=== PATIENT | female | born 2000 | race African-American/Black ===

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

== ENCOUNTER → 2018-05-24 | Outpatient (REF) | payer OTHER ==
[2018-05-24 12:17] LABS: AMORPHOUS SEDIMENT SMALL (NEGATIVE); APPEARANCE, URINE CLOUDY (CLEAR); BACTERIA, URINE AUTO NEGATIVE (NEGATIVE); BILIRUBIN, URINE AUTO NEGATIVE (NEGATIVE); BLOOD, URINE BLOOD NEGATIVE (NEGATIVE); COLOR, URINE YELLOW (YELLOW); GLUCOSE, URINE (UA) AUTO NEGATIVE (NEGATIVE); KETONE, URINE AUTO NEGATIVE (NEGATIVE); LEUKOCYTE ESTERASE, URINE AUTO 1+ (NEGATIVE); NITRITE, URINE AUTO NEGATIVE (NEGATIVE); PROTEIN, URINE AUTO NEGATIVE (NEGATIVE); RBC, URINE AUTO 2 /HPF (0-3); SPECIFIC GRAVITY URINE AUTO 1.003 (1.002-1.035); SQUAMOUS EPITHELIAL CELL UR AU 20 /HPF (0-6); UROBILINOGEN, URINE AUTO 0.2 mg/dL (0.0-2.0); WBC, URINE AUTO 8 /HPF (0-3)
[2018-05-24 13:12] LABS: ALBUMIN/GLOBULIN RATIO 0.98 (1.00-1.93); ALKALINE PHOSPHATASE 46 U/L (45-117); ALT/SGPT 15 U/L (12-78); ANION GAP 8 MEQ/L (8-16); AST/SGOT 18 U/L (7-37); BILIRUBIN,TOTAL 0.9 MG/DL (0.2-1.0); BLOOD UREA NITROGEN 14 MG/DL (7-18); CALCIUM LEVEL 8.9 MG/DL (8.5-10.1); CARBON DIOXIDE LEVEL 27 MEQ/L (21-32); CHLORIDE LEVEL 102 MEQ/L (98-107); CREATININE FOR GFR 0.87 MG/DL (0.55-1.30); GLUCOSE, FASTING 71 MG/DL (70-100); POTASSIUM SERUM 3.9 MEQ/L (3.5-5.1); SODIUM LEVEL 137 MEQ/L (136-145); TOTAL PROTEIN 8.1 GM/DL (6.4-8.2)
[2018-05-24 14:25] LABS: CHLAMYDIA DNA AMPLIFICATION NEGATIVE (NEGATIVE); GC DNA AMPLIFICATION NEGATIVE (NEGATIVE)
[2018-05-29 00:06] LABS: % CD8 Pos Lymph 45.5 % (12.0-35.5); %CD4 Pos Lymphs 34.4 % (30.8-58.5); ABS Eosinophils 0.1 x10E3/uL (0.0-0.4); ABS Lymphs 2.1 x10E3/uL (0.7-3.1); ABS Monocytes 0.3 x10E3/uL (0.1-0.9); ABS Neutophils 1.6 x10E3/uL (1.4-7.0); Abs CD4 Helper 722 /uL (359-1519); Abs CD8 Suppres 956 /uL (109-897); CD4/CD8 Ratio 0.76 (0.92-3.72); Eosinophils 1 % (Not Estab.); HCT 36.8 % (34.0-46.6); HGB 12.2 g/dL (11.1-15.9); HIV-1 RNA PCR QUANT 2 LC550285 <20 copies/mL (.); Immature Grans 0 % (Not Estab.); Lymphocytes 52 % (Not Estab.); MCH 31.9 pg (26.6-33.0); MCHC 33.2 g/dL (31.5-35.7); MCV 96 fL (79-97); Monocytes 7 % (Not Estab.); Neutrophils 40 % (Not Estab.); Platelets 224 x10E3/uL (150-379); RBC 3.82 x10E6/uL (3.77-5.28); RDW 15.2 % (12.3-15.4); WBC 4.1 x10E3/uL (3.4-10.8)
== END ==
LOC: M SFHCPLAZ 09:12
DX: B20 Human immunodeficiency virus [HIV] disease (principal)
CPT/HCPCS: 80053

== ENCOUNTER 2018-07-30 11:07 | Emergency (ER) | payer OTHER ==
[~2018-07-30] VITALS: Ht 175.3 cm; Wt 75.0 kg
[2018-07-30] MEDS ORDERED: TRIU1TAB PO (11:25)
[2018-07-30 11:42] LABS: BASO % 0.5 % (0.0-1.0); EOS # 0.1 10^3/uL (0.0-0.50); EOS % 1.4 % (0.0-3.0); HEMATOCRIT 33.4 % (36.0-47.0); HEMOGLOBIN 11.1 g/dl (12.0-15.5); LYMPH # 2.7 10^3/uL (1.5-6.5); LYMPH % 45.6 % (24.0-44.0); MEAN CORPUSCULAR HEMOGLOBIN 33.4 pg (27.0-33.0); MEAN CORPUSCULAR HGB CONC 33.2 g/dl (32.0-36.5); MEAN CORPUSCULAR VOLUME 100.6 fl (80.0-96.0); MONO # 0.3 10^3/uL (0.0-0.8); MONO % 5.3 % (0.0-5.0); NEUTROPHILS # 2.8 10^3/uL (1.8-7.7); PLATELET COUNT, AUTOMATED 241 10^3/uL (150-450); RED BLOOD COUNT 3.32 10^6/uL (4.00-5.40); WHITE BLOOD COUNT 5.9 10^3/uL (4.0-10.0)
[2018-07-30 12:05] LABS: BLOOD UREA NITROGEN 13 MG/DL (7-18); CALCIUM LEVEL 9.1 MG/DL (8.5-10.1); CARBON DIOXIDE LEVEL 28 MEQ/L (21-32); CHLORIDE LEVEL 104 MEQ/L (98-107); CREATININE FOR GFR 0.92 MG/DL (0.55-1.30); GLUCOSE, FASTING 95 MG/DL (70-100); POTASSIUM SERUM 3.5 MEQ/L (3.5-5.1); SODIUM LEVEL 139 MEQ/L (136-145)
[2018-07-30 12:08] LABS: HCG, SERUM QUALITATIVE NEGATIVE (NEGATIVE)
--- NOTE | 2018-07-30 13:02 | REP ---
PELVIC AND ENDOVAGINAL PROBE ULTRASOUND: 07/30/2018. Clinical history: Continuous vaginal bleeding since May. Findings: No prior study. Transabdominal and endovaginal probes were utilized. Bladder is nearly completely empty. Uterus is anteverted and anteflexed and measures 8.5 x 3.3 x 3.8 cm. Uterine contour is smooth. It appears homogeneous. However the endometrium appears subtly heterogeneous and has a thickness up to 13 mm. I do not see definite fluid in the endometrial cavity or endocervical canal. No nodule or mass identified in the endometrium. No fluid in the cul-de-sac. The right ovary 4.1 x 1.9 x 2.3 cm and the left ovary 2.6 x 2.3 x 2.2 cm. Neither ovary shows solid mass or cyst. There are subcentimeter follicles on both sides. Doppler tracing shows resistive index of 0.58 on the right 0.65 on the left, normal. No evidence of torsion. No adjacent free fluid. EV probe shows a few small Nabothian cysts in the cervix. Impression: 1. Uterus anteverted, not enlarged and without focal abnormality of the myometrium. Contours normal. No pelvic free fluid. 2. Endometrial stripe is subtly heterogeneous, its thickness 13 mm without fluid in the endometrial cavity or endocervical canal. No nodule/mass seen within. 3. Bilateral ovaries show blood flow and no mass, cyst, adjacent free fluid or other acute finding. Electronically Signed by Matt Napier MD 07/30/2018 05:51 P
[2018-07-30 14:31] VITALS: BP 123/77
--- NOTE | 2018-08-05 19:45 | ED PDOC ---
Post-Departure Follow-Up malia maurer and dena eddy faxed formal report of pelvic us for fu Karine Rodriguez MD Aug 05, 2018 19:45
== END 2018-07-30 14:36 | disposition home or self-care (01) ==
LOC: M ED 11:07
DX: N93.9 Abnormal uterine and vaginal bleeding, unspecified (principal); R10.30 Lower abdominal pain, unspecified; B20 Human immunodeficiency virus [HIV] disease; Z79.899 Other long term (current) drug therapy

== ENCOUNTER → 2018-08-27 | Outpatient (REF) | payer OTHER ==
[~2018-08-27] MED LIST: TRIU1TAB PO
[2018-08-27 13:57] LABS: APPEARANCE, URINE CLEAR (CLEAR); BACTERIA, URINE AUTO 1+ (NEGATIVE); BILIRUBIN, URINE AUTO NEGATIVE (NEGATIVE); BLOOD, URINE BLOOD 1+ (NEGATIVE); COLOR, URINE STRAW (YELLOW); GLUCOSE, URINE (UA) AUTO NEGATIVE (NEGATIVE); KETONE, URINE AUTO NEGATIVE (NEGATIVE); LEUKOCYTE ESTERASE, URINE AUTO TRACE (NEGATIVE); NITRITE, URINE AUTO NEGATIVE (NEGATIVE); PROTEIN, URINE AUTO NEGATIVE (NEGATIVE); RBC, URINE AUTO 4 /HPF (0-3); SPECIFIC GRAVITY URINE AUTO 1.004 (1.002-1.035); SQUAMOUS EPITHELIAL CELL UR AU 4 /HPF (0-6); UROBILINOGEN, URINE AUTO 0.2 mg/dL (0.0-2.0); WBC, URINE AUTO 0 /HPF (0-3)
[2018-08-27 14:44] LABS: ALBUMIN 4.1 GM/DL (3.2-5.2); ALT/SGPT 15 U/L (12-78); BILIRUBIN,TOTAL 0.5 MG/DL (0.2-1.0); BLOOD UREA NITROGEN 12 MG/DL (7-18); CARBON DIOXIDE LEVEL 25 MEQ/L (21-32); CHLORIDE LEVEL 107 MEQ/L (98-107); CREATININE FOR GFR 0.88 MG/DL (0.55-1.30); GLUCOSE, FASTING 85 MG/DL (70-100); POTASSIUM SERUM 3.9 MEQ/L (3.5-5.1); SODIUM LEVEL 139 MEQ/L (136-145); TOTAL PROTEIN 8.1 GM/DL (6.4-8.2)
[2018-08-28 12:33] LABS: CHLAMYDIA DNA AMPLIFICATION NEGATIVE (NEGATIVE); GC DNA AMPLIFICATION NEGATIVE (NEGATIVE)
[2018-08-29 10:15] LABS: % CD8 Pos Lymph 48.8 % (12.0-35.5); %CD4 Pos Lymphs 32.2 % (30.8-58.5); ABS Eosinophils 0.1 x10E3/uL (0.0-0.4); ABS Lymphs 1.9 x10E3/uL (0.7-3.1); ABS Monocytes 0.3 x10E3/uL (0.1-0.9); ABS Neutophils 3.4 x10E3/uL (1.4-7.0); Abs CD4 Helper 612 /uL (359-1519); Abs CD8 Suppres 927 /uL (109-897); CD4/CD8 Ratio 0.66 (0.92-3.72); Eosinophils 1 % (Not Estab.); HCT 29.6 % (34.0-46.6); HGB 9.9 g/dL (11.1-15.9); HIV-1 RNA PCR QUANT 2 LC550285 <20 copies/mL (.); Immature Grans 0 % (Not Estab.); Lymphocytes 33 % (Not Estab.); MCHC 33.4 g/dL (31.5-35.7); MCV 96 fL (79-97); Monocytes 6 % (Not Estab.); Neutrophils 60 % (Not Estab.); Platelets 376 x10E3/uL (150-379); RBC 3.09 x10E6/uL (3.77-5.28); RDW 14.1 % (12.3-15.4); WBC 5.6 x10E3/uL (3.4-10.8)
== END ==
LOC: M SFHCPLAZ 11:34
PROVIDERS: ATTEND Internal Medicine Infectious Disease
DX: B20 Human immunodeficiency virus [HIV] disease (principal); Z86.19 Personal history of other infectious and parasitic diseases

== ENCOUNTER → 2019-03-20 | Outpatient (REF) | payer OTHER ==
[2019-03-20 13:49] LABS: ALBUMIN 3.9 GM/DL (3.2-5.2); ALT/SGPT 13 U/L (12-78); BILIRUBIN,TOTAL 0.5 MG/DL (0.2-1.0); BLOOD UREA NITROGEN 6 MG/DL (7-18); CALCIUM LEVEL 9.5 MG/DL (8.5-10.1); CARBON DIOXIDE LEVEL 23 MEQ/L (21-32); CHLORIDE LEVEL 107 MEQ/L (98-107); CREATININE FOR GFR 0.66 MG/DL (0.55-1.30); GLUCOSE, FASTING 84 MG/DL (70-100); POTASSIUM SERUM 3.9 MEQ/L (3.5-5.1); SODIUM LEVEL 139 MEQ/L (136-145); TOTAL PROTEIN 7.8 GM/DL (6.4-8.2)
[2019-03-26 00:07] LABS: % CD8 Pos Lymph 43.9 % (12.0-35.5); %CD4 Pos Lymphs 36.2 % (30.8-58.5); ABS Eosinophils 0.1 x10E3/uL (0.0-0.4); ABS Lymphs 1.9 x10E3/uL (0.7-3.1); ABS Monocytes 0.4 x10E3/uL (0.1-0.9); ABS Neutophils 4.1 x10E3/uL (1.4-7.0); Abs CD4 Helper 688 /uL (359-1519); Abs CD8 Suppres 834 /uL (109-897); CD4/CD8 Ratio 0.82 (0.92-3.72); Eosinophils 2 % (Not Estab.); HCT 36.3 % (34.0-46.6); HGB 12.1 g/dL (11.1-15.9); HIV-1 RNA PCR QUANT 2 LC550285 <20 copies/mL (.); Immature Grans 0 % (Not Estab.); Lymphocytes 29 % (Not Estab.); MCH 31.3 pg (26.6-33.0); MCHC 33.3 g/dL (31.5-35.7); MCV 94 fL (79-97); Monocytes 6 % (Not Estab.); Neutrophils 63 % (Not Estab.); Platelets 245 x10E3/uL (150-450); RBC 3.87 x10E6/uL (3.77-5.28); RDW 16.8 % (12.3-15.4); WBC 6.5 x10E3/uL (3.4-10.8)
== END ==
LOC: M SFHCPLAZ 11:29
PROVIDERS: ATTEND Internal Medicine Infectious Disease
DX: B20 Human immunodeficiency virus [HIV] disease (principal)

== ENCOUNTER → 2019-04-24 | Outpatient (CLI) | payer OTHER ==
[2019-04-24 16:27] LABS: BASO % 0.3 % (0.0-1.0); EOS # 0.1 10^3/uL (0.0-0.5); EOS % 1.2 % (0.0-3.0); HEMATOCRIT 34.6 % (36.0-47.0); HEMOGLOBIN 11.5 g/dl (12.0-15.5); LYMPH # 2.1 10^3/uL (1.5-5.0); LYMPH % 30.8 % (24.0-44.0); MEAN CORPUSCULAR HEMOGLOBIN 32.2 pg (27.0-33.0); MEAN CORPUSCULAR HGB CONC 33.2 g/dl (32.0-36.5); MEAN CORPUSCULAR VOLUME 96.9 fl (80.0-96.0); MONO # 0.5 10^3/uL (0.0-0.8); NEUTROPHILS # 4.1 10^3/uL (1.5-8.5); NEUTROPHILS % 60.4 % (36.0-66.0); PLATELET COUNT, AUTOMATED 216 10^3/uL (150-450); RED BLOOD COUNT 3.57 10^6/uL (4.00-5.40); WHITE BLOOD COUNT 6.8 10^3/uL (4.0-10.0)
[2019-04-24 18:04] LABS: CHLAMYDIA DNA AMPLIFICATION NEGATIVE (NEGATIVE); GC DNA AMPLIFICATION NEGATIVE (NEGATIVE)
[2019-04-25 12:46] LABS: RUBELLA IgG QUALITATIVE IMMUNE (IMMUNE)
[2019-04-28 10:04] LABS: HIV 1&2 SCREEN CENTAUR REACTIVE (NEGATIVE)
== END ==
LOC: M LAB 15:23
PROVIDERS: ATTEND Advanced Practice Midwife
DX: Z34.01 Encounter for supervision of normal first pregnancy, first trimester (principal); Z36.89 Encounter for other specified antenatal screening

== ENCOUNTER → 2019-04-30 | Outpatient (CLI) | payer OTHER ==
--- NOTE | 2019-04-30 11:34 | REP ---
OB ULTRASOUND: Real-time sonographic evaluation of the gravid uterus is performed. There is a single living intrauterine gestation. Estimated gestational age is 19 weeks 2 days, EDC 09/22/2019. Today's measurements indicate appropriate growth. BPD 45 mm = 19 weeks 5 days, 60th percentile HC 172 mm = 19 weeks 5 days, 61st percentile AC 142 mm = 19 weeks 4 days, 56th percentile Femur length 31 mm = 19 weeks 5 days, 59th percentile HC/AC ratio 1.21 within normal range. Estimated weight 304 grams, 59th percentile. Cervix is closed and measures 3.2 cm in length. heart rate 139 beats per minute. SEEN/GROSSLY UNREMARKABLE Lateral ventricles Yes Posterior fossa Yes Upper lip Yes Four-chamber heart No LVOT Yes RVOT No Stomach Yes Cord insertion Yes Three vessel cord Yes Kidneys Yes Bladder Yes Spine Yes position: Breech. Placenta: Anterior and grade 1 with no previa or abruption. Amniotic fluid: Within normal limits. Electronically Signed by Wayne Boswell MD 05/01/2019 11:18 A
== END ==
LOC: M RAD 10:27
PROVIDERS: ATTEND Advanced Practice Midwife
DX: Z34.02 Encounter for supervision of normal first pregnancy, second trimester (principal); Z36.89 Encounter for other specified antenatal screening; Z3A.19 19 weeks gestation of pregnancy

== ENCOUNTER → 2019-06-12 | Outpatient (CLI) | payer OTHER ==
--- NOTE | 2019-06-12 21:16 | REP ---
Clinical: Anatomical evaluation. Comparison: 04/30/2019 . Findings: Examination demonstrates a single live intrauterine in cephalic presentation. motion is identified by technologist. Placenta is noted the anterior and grade I without evidence for placenta previa or abruption. Amniotic fluid volume is normal. Cervix measures 3.7 cm in length and appears closed. No evidence for nuchal cord. Gestational age by LMP 25 weeks 3 days with CHASITY 09/22/2019 . Gestational age by current measurements 26 weeks 3 days with CHASITY 09/15/2019 . FHR equals 144 beats per minute. Estimated weight 914 grams ( 67th percentile). Anatomical assessment demonstrates normal structures including cranium, choroid plexus, cavum, cerebellum/posterior fossa, lungs, four-chamber heart/ventricular outflow tracts, diaphragm, stomach, cord insertion/three-vessel cord, kidneys/bladder, spine, and extremities. Impression: Single live intrauterine in cephalic presentation demonstrating appropriate interval growth. In conjunction with prior examination anatomical assessment is complete and normal. No gross abnormalities are identified. Electronically Signed by Esteban Smalls MD 06/12/2019 09:07 P
== END ==
LOC: M RAD 08:13
PROVIDERS: ATTEND Advanced Practice Midwife
DX: Z34.02 Encounter for supervision of normal first pregnancy, second trimester (principal); Z3A.26 26 weeks gestation of pregnancy

== ENCOUNTER → 2019-06-21 | Outpatient (REF) | payer OTHER ==
[2019-06-21 12:36] LABS: AMORPHOUS SEDIMENT SMALL (NEGATIVE); APPEARANCE, URINE HAZY (CLEAR); BACTERIA, URINE AUTO NEGATIVE (NEGATIVE); BILIRUBIN, URINE AUTO NEGATIVE (NEGATIVE); BLOOD, URINE BLOOD NEGATIVE (NEGATIVE); COLOR, URINE YELLOW (YELLOW); GLUCOSE, URINE (UA) AUTO NEGATIVE (NEGATIVE); KETONE, URINE AUTO NEGATIVE (NEGATIVE); LEUKOCYTE ESTERASE, URINE AUTO 2+ (NEGATIVE); MUCUS, URINE SMALL (NEGATIVE); NITRITE, URINE AUTO NEGATIVE (NEGATIVE); PROTEIN, URINE AUTO NEGATIVE (NEGATIVE); RBC, URINE AUTO 0 /HPF (0-3); SPECIFIC GRAVITY URINE AUTO 1.014 (1.002-1.035); SQUAMOUS EPITHELIAL CELL UR AU 2 /HPF (0-6); UROBILINOGEN, URINE AUTO 0.2 mg/dL (0.0-2.0); WBC, URINE AUTO 3 /HPF (0-3)
== END ==
LOC: M LAB REF 12:13
PROVIDERS: ATTEND Physician Assistant Medical
DX: N39.0 Urinary tract infection, site not specified (principal)

== ENCOUNTER → 2019-06-23 | Outpatient (REF) | payer OTHER | LOC: M SFHCPLAZ 13:30 | PROVIDERS: ATTEND Internal Medicine Infectious Disease | DX: B20 Human immunodeficiency virus [HIV] disease (principal) ==

== ENCOUNTER → 2019-07-07 | Outpatient (CLI) | payer OTHER ==
[2019-07-07 14:22] LABS: HEMATOCRIT 30.8 % (36.0-47.0); HEMOGLOBIN 9.9 g/dl (12.0-15.5); MEAN CORPUSCULAR HEMOGLOBIN 31.8 pg (27.0-33.0); MEAN CORPUSCULAR HGB CONC 32.1 g/dl (32.0-36.5); PLATELET COUNT, AUTOMATED 174 10^3/uL (150-450); RED BLOOD COUNT 3.11 10^6/uL (4.00-5.40); WHITE BLOOD COUNT 7.3 10^3/uL (4.0-10.0)
== END ==
LOC: M PLALAB 09:47
PROVIDERS: ATTEND Advanced Practice Midwife
DX: Z34.02 Encounter for supervision of normal first pregnancy, second trimester (principal); Z3A.00 Weeks of gestation of pregnancy not specified

== ENCOUNTER → 2019-08-04 | Outpatient (CLI) | payer OTHER | LOC: M LAB 08:36 | PROVIDERS: ATTEND Advanced Practice Midwife | DX: Z34.03 Encounter for supervision of normal first pregnancy, third trimester (principal); R73.02 Impaired glucose tolerance (oral); Z3A.00 Weeks of gestation of pregnancy not specified ==

== ENCOUNTER → 2019-08-25 | Outpatient (REF) | payer OTHER | LOC: M SFHCWAGY 11:47 | PROVIDERS: ATTEND Specialist | DX: Z34.03 Encounter for supervision of normal first pregnancy, third trimester (principal); Z36.85 Encounter for antenatal screening for Streptococcus B ==

== ENCOUNTER 2019-09-06 02:51 | Inpatient (IN) | payer OTHER ==
[2019-09-06] VITALS (10 sets, daily range): BP systolic 124–151; BP diastolic 70–88
[~2019-09-06] VITALS: Ht 177.8 cm; Wt 91.3 kg
[2019-09-06] MEDS ORDERED: LR 1,000 ML IV SCH (03:01)
[2019-09-06] MEDS ORDERED: LACTATED RINGER'S 1000 ML IV STA (03:01)
[2019-09-06 03:29] LABS: HEMATOCRIT 32.1 % (36.0-47.0); HEMOGLOBIN 10.5 g/dl (12.0-15.5); MEAN CORPUSCULAR HEMOGLOBIN 28.5 pg (27.0-33.0); MEAN CORPUSCULAR HGB CONC 32.7 g/dl (32.0-36.5); MEAN CORPUSCULAR VOLUME 87.2 fl (80.0-96.0); PLATELET COUNT, AUTOMATED 243 10^3/uL (150-450); RED BLOOD COUNT 3.68 10^6/uL (4.00-5.40); WHITE BLOOD COUNT 10.8 10^3/uL (4.0-10.0)
[2019-09-06] MEDS ORDERED: FENTANYL 2MCG/ML ROPIVACAINE 0.2% IN 0.9% NACL 100ML IVBAG As Ordered ONE (04:05)
[2019-09-06] MEDS ORDERED: OXYTOCIN 30 UNITS IN 0.9% NaCl 500ML IV BAG (J2590) As Ordered ONE (04:38)
[2019-09-06] MEDS ORDERED: NALOXONE INJ 0.4 MG/1 ML VIAL (J2310) IV PRN (04:45)
[2019-09-06] MEDS ORDERED: ePHEDrine SULFATE 25 MG/5 ML(5MG/ML) SYRINGE IV PRN (04:45)
[2019-09-06] MEDS ORDERED: FENTANYL/ROPIVACAINE/NACL BAG 100 ML EPIDURAL SCH (04:45)
[2019-09-06] MEDS ORDERED: LACTATED RINGER'S 1000 ML IV PRN (04:45)
[2019-09-06] MEDS ORDERED: EPIDURAL/PCA KEYS XX PRN (04:45)
[2019-09-06] MEDS ORDERED: REFRIGERATOR IV KEYS XX PRN (04:45)
[2019-09-06] MEDS ORDERED: diphenhydrAMINE INJ 50MG/ML VIAL (J1200) IV PRN (04:45)
[2019-09-06] MEDS ORDERED: ONDANSETRON 4MG/2ML VIAL (J2405) IV PRN (04:45)
[2019-09-06] MEDS ORDERED: EPIDURAL COMMENT XX SCH (04:45)
[2019-09-06] MEDS ORDERED: DIBUCAINE 1% OINTMENT 30GM TOP PRN (05:15)
[2019-09-06] MEDS ORDERED: ACETAMINOPHEN 500 MG TAB PO PRN (05:15)
[2019-09-06] MEDS ORDERED: DOCUSATE SODIUM 100 MG CAP PO PRN (05:15)
[2019-09-06] MEDS ORDERED: METHYLERGONOVINE MALEATE 0.2 MG TAB PO PRN (05:15)
[2019-09-06] MEDS ORDERED: ACETAMINOPHEN TAB 650MG DOSE (2X325MG) PO PRN (05:15)
[2019-09-06] MEDS ORDERED: RHOGAM 300 MCG (1500 IU) INJ (J2790) IM SCH (05:15)
[2019-09-06] MEDS ORDERED: IBUPROFEN 800 MG TAB PO PRN (05:15)
[2019-09-06] MEDS ORDERED: MEASLES,MUMPS,RUBELLA VACCINE INJ (MMR-II) (90707) SC SCH (05:15)
[2019-09-06] MEDS ORDERED: OXYTOCIN DRIP 30 UNITS in IV 1 EA IV SCH (05:15)
[2019-09-06] MEDS ORDERED: IBUPROFEN 600 MG TAB PO PRN (05:15)
--- NOTE | 2019-09-06 06:29 | HPE ---
DATE OF ADMISSION: 09/06/2019 Chanel is a 19-year-old, 1, para 0, at 37-5/7 weeks gestation with an estimated date of confinement (EDC) of 09/22/2019 based on first trimester ultrasound. She presents to labor and delivery today with report of onset of uncomfortable contractions yesterday that progressively became excruciating overnight. She denies vaginal bleeding or leakage of fluid. The fetus has been active. Her care was initiated at [facility] in the first trimester. Her course complicated by HIV positive status. Her last viral load in June was extremely low. She does see Dr. Jeter for management. OBSTETRIC HISTORY: Primigravida. OBSTETRIC LABS: B+, antibody screen negative, rubella immune, VDRL nonreactive. Urine culture no growth. Hepatitis B surface antigen negative. HIV positive HIV-1. Hepatitis C antibody nonreactive. Gonorrhea and chlamydia negative. She declined genetic serum screening labs. Her gestational diabetic screening was elevated at 151. She did however have a normal 3-hour glucose tolerance test fasting 87, 1-hour 165, 2-hour 166, and 3-hour 138. Her GBS is negative. PAST MEDICAL HISTORY: HIV positive, childhood varicella. SURGERIES: Tympanostomy FAMILY HISTORY: Seizure disorder, asthma. SOCIAL HISTORY: The patient is single. However, the father of the baby is at bedside and supportive. She is a nonsmoker. She denies alcohol and drug use. She does have a history of chlamydia in the past and currently HIV positive. She denies history of abuse physical, sexual, and emotional. ALLERGIES: NO KNOWN DRUG ALLERGIES. CURRENT MEDICATIONS: - Biktarvy 50-125 - vitamins OBJECTIVE: There are no vital signs that have been taken. She is extremely uncomfortable, crying with her contractions. heart rate is 150 with moderate variability, positive accelerations, no decelerations. Geraldo every 2 minutes. They do palpate strong. Her abdomen is gravid, cephalic presentation. Estimated weight 6-1/2-7 pounds. Sterile vaginal exam: 5 cm dilated, 100% effaced, zero station. Mid position. She is intact. There is no bloody show. ASSESSMENT: Intrauterine at 37-5/7 weeks, heart rate category 1, active labor. PLAN: Admit the patient to labor and delivery. IV fluid bolus. The patient is requesting an epidural for her pain management. Routine labs. Out of bed ad montserrat. Clear liquid diet at this time. I do anticipate continued labor progress and a spontaneous vaginal delivery. The patient has been verbally consented for emergency surgery and blood products if necessary. DAYROND
--- NOTE | 2019-09-06 06:33 | DN ---
DATE OF DELIVERY: 09/06/2019 DELIVERY NOTE: Chanel is a 19-year-old 1, para 1-0-0-1 now, who was admitted to labor and delivery in active labor. She coped with her labor physiologically. She had spontaneous rupture of membranes for a small amount of clear fluid at 0401 hours. She reached complete dilation at 0438 hours. She pushed to a normal spontaneous vaginal delivery of a live female infant in left occiput anterior (SEBASTIEN) position with restitution to left occiput transverse (LOT) position at 0446 hours. There was no nuchal cord. The shoulders delivered spontaneously and the corpus immediately followed. The female was placed on the maternal abdomen crying and active. Mouth and nares bulb suctioned. The cord was clamped times two and cut by the father of the baby under my direction. Spontaneous expulsion of an intact placenta with three-vessel cord by Schultze mechanism was at 0450 hours. Uterine hemostasis achieved with IV Pitocin rapid infusion and uterine fundal massage. Estimated blood loss 250 mL. Perineum and vagina inspected and noted to have a small right labial laceration, but laceration is hemostatic, no need for any repair. [place] female weighed 2870 grams (6 pounds 5 ounces), 9 and 9. Mom is going to bottle feed her baby and the family have named her Sujatha. At the close of delivery, lap counts and instrument counts were correct and verified.
[2019-09-06] MEDS: PRENATAL VITAMINS CHEWABLE TABLET PO SCH (09:00)
[2019-09-07 06:00] VITALS: BP 124/70
[2019-09-07] MEDS: PRENATAL VITAMINS CHEWABLE TABLET PO SCH (11:43)
[2019-09-07 18:00] VITALS: BP 133/76
[2019-09-08 06:00] VITALS: BP 126/79
[2019-09-08] MEDS ORDERED: IBUP80TA PO (07:05)
[2019-09-08] MEDS ORDERED: ACET-683 PO (07:05)
[2019-09-08] MEDS: PRENATAL VITAMINS CHEWABLE TABLET PO SCH (09:23)
== END 2019-09-08 12:50 | disposition home or self-care (01) | DRG 560 ==
LOC: M LDO 02:51 → M LDI 02:58 → M OBS 06:16
PROVIDERS: ADMIT Advanced Practice Midwife; ATTEND Advanced Practice Midwife
PROC: 10E0XZZ Delivery of Products of Conception, External Approach (ICD-10-PCS; principal; 2019-09-06)
DX: O98.72 Human immunodeficiency virus [HIV] disease complicating childbirth (principal); B20 Human immunodeficiency virus [HIV] disease; O70.0 First degree perineal laceration during delivery; Z37.0 Single live birth; Z3A.37 37 weeks gestation of pregnancy

== ENCOUNTER → 2020-04-05 | Outpatient (REF) | payer MEDICAID ==
[~2020-04-05] MED LIST changes: +ACET-683 PO; +IBUP80TA PO
[2020-04-05 11:02] LABS: ALBUMIN 3.8 GM/DL (3.2-5.2); ALT/SGPT 16 U/L (12-78); BILIRUBIN,TOTAL 0.5 MG/DL (0.2-1.0); BLOOD UREA NITROGEN 14 MG/DL (7-18); CARBON DIOXIDE LEVEL 24 MEQ/L (21-32); CHLORIDE LEVEL 109 MEQ/L (98-107); CREATININE FOR GFR 0.86 MG/DL (0.55-1.30); GLOMERULAR FILTRATION RATE > 60.0 (>60); GLUCOSE, FASTING 91 MG/DL (70-100); SODIUM LEVEL 140 MEQ/L (136-145); TOTAL PROTEIN 7.5 GM/DL (6.4-8.2)
[2020-04-07 03:08] LABS: % CD8 Pos Lymph 46.1 % (12.0-35.5); %CD4 Pos Lymphs 38.1 % (30.8-58.5); ABS Eosinophils 0.1 x10E3/uL (0.0-0.4); ABS Lymphs 2.8 x10E3/uL (0.7-3.1); ABS Monocytes 0.4 x10E3/uL (0.1-0.9); ABS Neutophils 2.9 x10E3/uL (1.4-7.0); Abs CD4 Helper 1067 /uL (359-1519); Abs CD8 Suppres 1291 /uL (109-897); CD4/CD8 Ratio 0.83 (0.92-3.72); Eosinophils 1 % (Not Estab.); HGB 10.9 g/dL (11.1-15.9); HIV-1 RNA PCR QUANT 2 LC550285 <20 copies/mL (.); Immature Grans 0 % (Not Estab.); Lymphocytes 45 % (Not Estab.); MCH 30.5 pg (26.6-33.0); MCHC 32.1 g/dL (31.5-35.7); MCV 95 fL (79-97); Monocytes 6 % (Not Estab.); Neutrophils 47 % (Not Estab.); Platelets 259 x10E3/uL (150-450); RBC 3.57 x10E6/uL (3.77-5.28); RDW 15.2 % (11.7-15.4); WBC 6.1 x10E3/uL (3.4-10.8)
== END ==
LOC: M SFHCPLAZ 08:17
PROVIDERS: ATTEND Internal Medicine Infectious Disease
DX: B20 Human immunodeficiency virus [HIV] disease (principal)

== ENCOUNTER → 2020-11-04 | Outpatient (REF) | payer MEDICAID ==
[2020-11-04 13:43] LABS: APPEARANCE, URINE CLEAR (CLEAR); BACTERIA, URINE AUTO NEGATIVE (NEGATIVE); BILIRUBIN, URINE AUTO NEGATIVE (NEGATIVE); BLOOD, URINE BLOOD NEGATIVE (NEGATIVE); COLOR, URINE STRAW (YELLOW); GLUCOSE, URINE (UA) AUTO NEGATIVE (NEGATIVE); KETONE, URINE AUTO NEGATIVE (NEGATIVE); LEUKOCYTE ESTERASE, URINE AUTO NEGATIVE (NEGATIVE); NITRITE, URINE AUTO NEGATIVE (NEGATIVE); PROTEIN, URINE AUTO NEGATIVE (NEGATIVE); RBC, URINE AUTO 0 /HPF (0-3); SPECIFIC GRAVITY URINE AUTO 1.004 (1.002-1.035); SQUAMOUS EPITHELIAL CELL UR AU 2 /HPF (0-6); UROBILINOGEN, URINE AUTO 0.2 mg/dL (0.0-2.0); WBC, URINE AUTO 0 /HPF (0-3)
[2020-11-04 14:16] LABS: ALBUMIN 4.4 GM/DL (3.2-5.2); ALT/SGPT 18 U/L (12-78); BILIRUBIN,TOTAL 0.8 MG/DL (0.2-1.0); BLOOD UREA NITROGEN 14 MG/DL (7-18); CALCIUM LEVEL 10.3 MG/DL (8.5-10.1); CARBON DIOXIDE LEVEL 24 MEQ/L (21-32); CHLORIDE LEVEL 108 MEQ/L (98-107); CHOLESTEROL LEVEL 155 MG/DL (<200); CHOLESTEROL RISK RATIO 1.962 (<5); CREATININE FOR GFR 0.97 MG/DL (0.55-1.30); GLOMERULAR FILTRATION RATE > 60.0 (>60); GLUCOSE, FASTING 91 MG/DL (70-100); HDL CHOLESTEROL 79 MG/DL (>40); LDL CHOLESTEROL 65 MG/DL (<100); NON-HDL-C 76 MG/DL; POTASSIUM SERUM 4.2 MEQ/L (3.5-5.1); SODIUM LEVEL 139 MEQ/L (136-145); TOTAL PROTEIN 8.1 GM/DL (6.4-8.2); TRIGLYCERIDES LEVEL 56 MG/DL (<150)
[2020-11-06 08:19] LABS: % CD8 Pos Lymph 49.1 % (12.0-35.5); %CD4 Pos Lymphs 33.2 % (30.8-58.5); ABS Eosinophils 0.1 x10E3/uL (0.0-0.4); ABS Lymphs 2.3 x10E3/uL (0.7-3.1); ABS Monocytes 0.3 x10E3/uL (0.1-0.9); ABS Neutophils 1.6 x10E3/uL (1.4-7.0); Abs CD4 Helper 764 /uL (359-1519); Abs CD8 Suppres 1129 /uL (109-897); CD4/CD8 Ratio 0.68 (0.92-3.72); Eosinophils 3 % (Not Estab.); HGB 12.8 g/dL (11.1-15.9); HIV-1 RNA PCR QUANT 2 LC550285 <20 copies/mL (.); Immature Grans 0 % (Not Estab.); Lymphocytes 53 % (Not Estab.); MCH 31.4 pg (26.6-33.0); MCHC 32.8 g/dL (31.5-35.7); MCV 96 fL (79-97); Monocytes 6 % (Not Estab.); Neutrophils 37 % (Not Estab.); Platelets 228 x10E3/uL (150-450); RBC 4.08 x10E6/uL (3.77-5.28); RDW 15.6 % (11.7-15.4); WBC 4.4 x10E3/uL (3.4-10.8)
== END ==
LOC: M SFHCPLAZ 11:05
PROVIDERS: ATTEND Internal Medicine Infectious Disease
DX: B20 Human immunodeficiency virus [HIV] disease (principal); Z13.220 Encounter for screening for lipoid disorders

== ENCOUNTER → 2021-02-22 | Outpatient (CLI) | payer MEDICAID ==
[2021-02-22 15:49] LABS: ALBUMIN 4.2 GM/DL (3.2-5.2); ALT/SGPT 19 U/L (12-78); BILIRUBIN,TOTAL 0.7 MG/DL (0.2-1.0); BLOOD UREA NITROGEN 13 MG/DL (7-18); CALCIUM LEVEL 9.4 MG/DL (8.5-10.1); CARBON DIOXIDE LEVEL 26 MEQ/L (21-32); CHLORIDE LEVEL 106 MEQ/L (98-107); CREATININE FOR GFR 1.03 MG/DL (0.55-1.30); GLOMERULAR FILTRATION RATE > 60.0 (>60); GLUCOSE, FASTING 92 MG/DL (70-100); SODIUM LEVEL 140 MEQ/L (136-145); TOTAL PROTEIN 8.1 GM/DL (6.4-8.2)
[2021-02-25 01:09] LABS: % CD8 Pos Lymph 44.7 % (12.0-35.5); %CD4 Pos Lymphs 38.1 % (30.8-58.5); ABS Eosinophils 0.1 x10E3/uL (0.0-0.4); ABS Lymphs 2.9 x10E3/uL (0.7-3.1); ABS Monocytes 0.2 x10E3/uL (0.1-0.9); ABS Neutophils 2.4 x10E3/uL (1.4-7.0); Abs CD4 Helper 1105 /uL (359-1519); Abs CD8 Suppres 1296 /uL (109-897); CD4/CD8 Ratio 0.85 (0.92-3.72); Eosinophils 2 % (Not Estab.); HCT 42.3 % (34.0-46.6); HGB 13.6 g/dL (11.1-15.9); HIV-1 RNA PCR QUANT 2 LC550285 <20 copies/mL (.); Immature Grans 0 % (Not Estab.); Lymphocytes 51 % (Not Estab.); MCH 33.3 pg (26.6-33.0); MCHC 32.2 g/dL (31.5-35.7); MCV 103 fL (79-97); Monocytes 4 % (Not Estab.); Neutrophils 42 % (Not Estab.); Platelets 235 x10E3/uL (150-450); RBC 4.09 x10E6/uL (3.77-5.28); WBC 5.8 x10E3/uL (3.4-10.8)
== END ==
LOC: M PLALAB 13:42
PROVIDERS: ATTEND Internal Medicine Infectious Disease
DX: B20 Human immunodeficiency virus [HIV] disease (principal)

== ENCOUNTER → 2021-04-07 | Outpatient (CLI) | payer MEDICAID ==
[2021-04-07 15:38] LABS: BASO % 0.5 % (0.0-1.0); EOS % 0.7 % (0.0-3.0); HEMATOCRIT 40.7 % (36.0-47.0); LYMPH # 2.2 10^3/uL (1.5-5.0); LYMPH % 36.6 % (24.0-44.0); MEAN CORPUSCULAR HEMOGLOBIN 34.1 pg (27.0-33.0); MEAN CORPUSCULAR HGB CONC 34.4 g/dl (32.0-36.5); MEAN CORPUSCULAR VOLUME 99.3 fl (80.0-96.0); MONO # 0.4 10^3/uL (0.0-0.8); MONO % 6.4 % (2.0-8.0); NEUTROPHILS # 3.3 10^3/uL (1.5-8.5); NEUTROPHILS % 55.5 % (36.0-66.0); PLATELET COUNT, AUTOMATED 256 10^3/uL (150-450)
[2021-04-07 16:23] LABS: ALBUMIN 4.5 GM/DL (3.2-5.2); ALT/SGPT 20 U/L (12-78); BILIRUBIN,TOTAL 1.3 MG/DL (0.2-1.0); BLOOD UREA NITROGEN 7 MG/DL (7-18); CARBON DIOXIDE LEVEL 26 MEQ/L (21-32); CHLORIDE LEVEL 106 MEQ/L (98-107); CREATININE FOR GFR 0.89 MG/DL (0.55-1.30); GLOMERULAR FILTRATION RATE > 60.0 (>60); GLUCOSE, FASTING 77 MG/DL (70-100); HCG, SERUM QUANTITATIVE 9482 MIU/ML; HEPATITIS B SURFACE ANTIGEN NEGATIVE (NEGATIVE); POTASSIUM SERUM 3.9 MEQ/L (3.5-5.1); SODIUM LEVEL 137 MEQ/L (136-145); TOTAL PROTEIN 8.2 GM/DL (6.4-8.2)
[2021-04-08 07:34] LABS: GC DNA AMPLIFICATION NEGATIVE (NEGATIVE)
== END ==
LOC: M PLALAB 11:32
PROVIDERS: ATTEND Internal Medicine Infectious Disease
DX: Z34.91 Encounter for supervision of normal pregnancy, unspecified, first trimester (principal); B20 Human immunodeficiency virus [HIV] disease

== ENCOUNTER → 2021-05-12 | Outpatient (CLI) | payer MEDICAID, OTHER ==
[2021-05-12 14:55] LABS: HEMATOCRIT 35.9 % (36.0-47.0); HEMOGLOBIN 12.4 g/dl (12.0-15.5); MEAN CORPUSCULAR HEMOGLOBIN 34.6 pg (27.0-33.0); MEAN CORPUSCULAR HGB CONC 34.5 g/dl (32.0-36.5); MEAN CORPUSCULAR VOLUME 100.3 fl (80.0-96.0); PLATELET COUNT, AUTOMATED 229 10^3/uL (150-450); RED BLOOD COUNT 3.58 10^6/uL (4.00-5.40); WHITE BLOOD COUNT 6.5 10^3/uL (4.0-10.0)
[2021-05-12 15:34] LABS: ALT/SGPT 20 U/L (12-78); BILIRUBIN,TOTAL 1.1 MG/DL (0.2-1.0); BLOOD UREA NITROGEN 7 MG/DL (7-18); CALCIUM LEVEL 9.2 MG/DL (8.5-10.1); CARBON DIOXIDE LEVEL 23 MEQ/L (21-32); CHLORIDE LEVEL 108 MEQ/L (98-107); GLOMERULAR FILTRATION RATE > 60.0 (>60); GLUCOSE, FASTING 82 MG/DL (70-100); POTASSIUM SERUM 3.5 MEQ/L (3.5-5.1); SODIUM LEVEL 139 MEQ/L (136-145); TOTAL PROTEIN 7.3 GM/DL (6.4-8.2)
[2021-05-12 16:11] LABS: HEPATITIS C VIRUS ABY INDEX 0.1 INDEX (<0.8)
[2021-05-12 16:35] LABS: GC DNA AMPLIFICATION NEGATIVE (NEGATIVE)
[2021-05-14 23:07] LABS: %CD4 Pos Lymphs 36.9 % (30.8-58.5); ABS Eosinophils 0.1 x10E3/uL (0.0-0.4); ABS Lymphs 2.5 x10E3/uL (0.7-3.1); ABS Monocytes 0.3 x10E3/uL (0.1-0.9); ABS Neutophils 3.9 x10E3/uL (1.4-7.0); Abs CD4 Helper 923 /uL (359-1519); Abs CD8 Suppres 1175 /uL (109-897); CD4/CD8 Ratio 0.79 (0.92-3.72); Eosinophils 2 % (Not Estab.); HCT 38.4 % (34.0-46.6); HGB 12.9 g/dL (11.1-15.9); HIV-1 RNA PCR QUANT 2 LC550285 <20 copies/mL (.); Immature Grans 0 % (Not Estab.); Lymphocytes 37 % (Not Estab.); MCH 34.6 pg (26.6-33.0); MCHC 33.6 g/dL (31.5-35.7); MCV 103 fL (79-97); Monocytes 4 % (Not Estab.); Neutrophils 57 % (Not Estab.); Platelets 238 x10E3/uL (150-450); RBC 3.73 x10E6/uL (3.77-5.28); RDW 12.6 % (11.7-15.4); WBC 6.8 x10E3/uL (3.4-10.8)
== END ==
LOC: M PLALAB 12:32
PROVIDERS: ATTEND Advanced Practice Midwife
DX: Z36.89 Encounter for other specified antenatal screening (principal); Z3A.10 10 weeks gestation of pregnancy

== ENCOUNTER → 2021-06-09 | Outpatient (CLI) | payer MEDICAID | LOC: M PLALAB 11:25 | PROVIDERS: ATTEND Specialist | DX: Z34.82 Encounter for supervision of other normal pregnancy, second trimester (principal); Z36.89 Encounter for other specified antenatal screening ==

== ENCOUNTER → 2021-07-19 | Outpatient (CLI) | payer MEDICAID | LOC: M WHC 10:00 | PROVIDERS: ATTEND Advanced Practice Midwife | DX: Z34.92 Encounter for supervision of normal pregnancy, unspecified, second trimester (principal); Z53.9 Procedure and treatment not carried out, unspecified reason ==

== ENCOUNTER → 2021-07-26 | Outpatient (CLI) | payer MEDICAID ==
[2021-07-26 14:22] LABS: ALBUMIN 3.2 GM/DL (3.2-5.2); ALT/SGPT 34 U/L (12-78); BILIRUBIN,TOTAL 0.6 MG/DL (0.2-1.0); BLOOD UREA NITROGEN 5 MG/DL (7-18); CALCIUM LEVEL 8.8 MG/DL (8.5-10.1); CARBON DIOXIDE LEVEL 22 MEQ/L (21-32); CHLORIDE LEVEL 106 MEQ/L (98-107); CREATININE FOR GFR 0.58 MG/DL (0.55-1.30); GLOMERULAR FILTRATION RATE > 60.0 (>60); GLUCOSE, FASTING 105 MG/DL (70-100); POTASSIUM SERUM 3.1 MEQ/L (3.5-5.1); SODIUM LEVEL 138 MEQ/L (136-145); TOTAL PROTEIN 6.8 GM/DL (6.4-8.2)
[2021-07-28 06:08] LABS: % CD8 Pos Lymph 46.9 % (12.0-35.5); %CD4 Pos Lymphs 39.8 % (30.8-58.5); ABS Eosinophils 0.1 x10E3/uL (0.0-0.4); ABS Lymphs 2.3 x10E3/uL (0.7-3.1); ABS Monocytes 0.4 x10E3/uL (0.1-0.9); ABS Neutophils 6.1 x10E3/uL (1.4-7.0); Abs CD4 Helper 915 /uL (359-1519); Abs CD8 Suppres 1079 /uL (109-897); CD4/CD8 Ratio 0.85 (0.92-3.72); Eosinophils 1 % (Not Estab.); HCT 33.8 % (34.0-46.6); HGB 11.8 g/dL (11.1-15.9); HIV-1 RNA PCR QUANT 2 LC550285 <20 copies/mL (.); Immature Grans 0 % (Not Estab.); Lymphocytes 25 % (Not Estab.); MCHC 34.9 g/dL (31.5-35.7); MCV 100 fL (79-97); Monocytes 5 % (Not Estab.); Neutrophils 69 % (Not Estab.); Platelets 200 x10E3/uL (150-450); RBC 3.37 x10E6/uL (3.77-5.28); RDW 12.4 % (11.7-15.4)
== END ==
LOC: M PLALAB 11:11
PROVIDERS: ATTEND Internal Medicine Infectious Disease
DX: B20 Human immunodeficiency virus [HIV] disease (principal)

== ENCOUNTER → 2021-07-27 | Outpatient (CLI) | payer MEDICAID | LOC: M WHC 10:50 | PROVIDERS: ATTEND Advanced Practice Midwife | DX: Z34.92 Encounter for supervision of normal pregnancy, unspecified, second trimester (principal); Z36.89 Encounter for other specified antenatal screening; Z3A.21 21 weeks gestation of pregnancy ==

== ENCOUNTER → 2022-05-15 | Outpatient (CLI) | payer MEDICAID, OTHER ==
[2022-05-15 16:57] LABS: ALKALINE PHOSPHATASE 48 U/L (46-116); ALT/SGPT 20 U/L (7.0-40); AST/SGOT 24 U/L (<34); BILIRUBIN,TOTAL 0.8 MG/DL (0.3-1.2); BLOOD UREA NITROGEN 12 MG/DL (9-23); CARBON DIOXIDE LEVEL 22 MMOL/L (20-31); CHLORIDE LEVEL 109 MMOL/L (98-107); CREATININE FOR GFR 0.93 MG/DL (0.55-1.30); GLOMERULAR FILTRATION RATE > 60.0 (>60); GLUCOSE, FASTING 83 MG/DL (60-100); POTASSIUM SERUM 3.9 MMOL/L (3.5-5.1); SODIUM LEVEL 141 MMOL/L (136-145); TOTAL PROTEIN 7.1 G/DL (5.7-8.2)
== END ==
LOC: M PLALAB 14:29
PROVIDERS: ATTEND Internal Medicine Infectious Disease
DX: B20 Human immunodeficiency virus [HIV] disease (principal)